=== PATIENT | female | born 1945 | race Caucasian/White ===

== ENCOUNTER → 2017-09-18 | Outpatient (CLI) | payer MEDICARE, OTHER | END | disposition home or self-care (01) | LOC: ECHO 09:44 | DX: I48.91 Unspecified atrial fibrillation (principal); I34.0 Nonrheumatic mitral (valve) insufficiency | CPT/HCPCS: 93306 ==

== ENCOUNTER 2017-12-16 09:37 | Day surgery (SDC) | payer MEDICARE ==
[~2017-12-16 09:37] MED LIST: APIX5TAB PO; CHOL2000 PO; HYDR25TA9 PO; HYDROmorphone 2 MG/ML VIAL IV PRN; IV RINGERS,LACTATED 1000ML 1,000 ML IV SCH; LEVO150T5 PO; LEVO25TA4 PO; LIDOCAINE 1% PF 2 ML VIAL. ID PRN; LOSA1TAB19 PO; LOSA50TA7 PO; LOVA20TA2 PO; LOVA40TA2 PO; MAG-OXIDE PO; MELO7.5T29 PO; METO-239 PO; MORPHINE SULFATE 2 MG/ML VIAL. IV PRN; MULT1TAB52 PO; OMEP20CA9 PO; ONDANSETRON PF 4 MG/2 ML VIAL. IV PRN; PROCHLORPERAZINE 10 MG/2 ML VIAL. IV PRN; UBID100C26 PO; VITA400C36 PO; fentaNYL PF VIAL 100 MCG/2 ML VIAL IV PRN
--- NOTE | 2017-12-16 10:10 | EKG ---
[facility] [address] [place] [address] Test Date: 2017-12-16 Test Time: 09:18:23 Pat Name: ROSA MEYERS Department: Room: Gender: F Civil Engineering Intern: : 1945 Requested By: TOMMY LYON Order Number: [id number] Reading MD: Greg Balbuena Measurements Intervals [place] Rate: 107 P: [place]: QRS: 46 QRSD: 70 T: 13 QT: 352 QTc: 476 Interpretive Statements ATRIAL FIBRILLATION QRS(T) CONTOUR ABNORMALITY CONSISTENT WITH SEPTAL INFARCT AGE UNDETERMINED ABNORMAL ECG RI6.01 No previous ECG available for comparison Electronically Signed On 12-17-2017 11:28:30 CDT by Greg Balbuena
[2017-12-16] MEDS ORDERED: PROPOFOL 20 ML IV ONE (11:00)
[2017-12-16 11:09] LABS: BASO % 1 % (0-3); EOS # 0.3 x10^3/uL (0.0-0.7); EOS % 5 % (0-3); HEMATOCRIT 42.9 % (36.0-47.0); HEMOGLOBIN 14.8 g/dL (12.0-15.5); LYMPH # 0.7 x10^3/uL (1.0-4.8); LYMPH % 14 % (24-48); MEAN CORPUSCULAR HEMOGLOBIN 32 pg (25-35); MEAN CORPUSCULAR HGB CONC 35 g/dL (31-37); MEAN CORPUSCULAR VOLUME 93 fL (79-100); MONO # 0.5 x10^3/uL (0.0-1.1); MONO % 9 % (0-9); NEUT # 3.8 x10^3uL (1.8-7.7); NEUT % 71 % (31-73); PLATELET COUNT 214 x10^3/uL (140-400); RED BLOOD COUNT 4.62 x10^6/uL (3.50-5.40); RED CELL DISTRIBUTION WIDTH 15.4 % (11.5-14.5); WHITE BLOOD COUNT 5.4 x10^3/uL (4.0-11.0)
[2017-12-16 11:19] LABS: CALCIUM 9.4 mg/dL (8.5-10.1); CREATININE 0.9 mg/dL (0.6-1.0); GFR 61.5; MAGNESIUM 1.8 mg/dL (1.8-2.4); POTASSIUM 3.8 mmol/L (3.5-5.1)
--- NOTE | 2017-12-16 12:17 | EKG ---
[facility] [address] [place] [address] Test Date: 2017-12-16 Test Time: 12:11:18 Pat Name: ROSA MEYERS Department: Room: Gender: F Chef'S Assistant: AT : 1945 Requested By: TOMMY LYON Order Number: [id number] Reading MD: Roosevelt Pemberton MD Measurements Intervals [place] Rate: 67 P: 55 PA: 208 QRS: 11 QRSD: 74 T: 26 QT: 434 QTc: 462 Interpretive Statements SINUS RHYTHM Electronically Signed On 12-17-2017 11:27:02 CDT by Rosoevelt Pemberton MD
[2017-12-16 12:40] VITALS: BP 122/82
--- NOTE | 2017-12-16 17:21 | PDOC4 ---
PROCEDURE Procedure Cardioversion. The patient is a 72-year-old female with a history of atrial fibrillation. She has been treated with rate control medications. She has been anticoagulated for greater than 2 months. Echocardiogram shows normal LV systolic function and a moderately enlarged left atrium. Attempted cardioversion for atrial fibrillation was recommended. Risks and benefits were discussed. She agreed to proceed. After informed consent was obtained the patient was reviewed by the anesthesiology service. The patient was sedated as per protocol. Once an acceptable level of sedation was reached the patient was treated with one discharge of 100 J of biphasic energy which converted her atrial fibrillation to sinus rhythm. She awoke normally from her anesthesia. Conclusion. Successful cardioversion of atrial fibrillation to a sinus rhythm. TOMMY LYON MD Dec 16, 2017 17:21
== END 2017-12-16 12:59 | disposition home or self-care (01) ==
LOC: SURG 09:37
PROVIDERS: ATTEND Internal Medicine Cardiovascular Disease
DX: I48.91 Unspecified atrial fibrillation (principal); I10 Essential (primary) hypertension; E03.9 Hypothyroidism, unspecified; K21.9 Gastro-esophageal reflux disease without esophagitis; Z98.41 Cataract extraction status, right eye; Z98.42 Cataract extraction status, left eye; Z96.1 Presence of intraocular lens; Z90.710 Acquired absence of both cervix and uterus; Z98.890 Other specified postprocedural states; Z82.49 Family history of ischemic heart disease and other diseases of the circulatory system; Z88.2 Allergy status to sulfonamides; Z91.048 Other nonmedicinal substance allergy status; Z79.899 Other long term (current) drug therapy
CPT/HCPCS: 36415; 80048; 83735; 85025; 92960; 93005; J2704

== ENCOUNTER → 2020-07-27 | Day surgery (SDC) | payer MEDICARE ==
[~2020-07-27] VITALS: Ht 177.8 cm; Wt 92.0 kg
[~2020-07-27] MED LIST changes: +HYDR-2145 PO; -HYDR25TA9 PO; -HYDROmorphone 2 MG/ML VIAL IV PRN; -LIDOCAINE 1% PF 2 ML VIAL. ID PRN; +LIDOCAINE 2% PF 5 ML VIAL. ONE; +LOSA-73 PO; -LOSA50TA7 PO; -MORPHINE SULFATE 2 MG/ML VIAL. IV PRN; +MULT-445 PO; -MULT1TAB52 PO; +OMEP20CA16 PO; -OMEP20CA9 PO; -ONDANSETRON PF 4 MG/2 ML VIAL. IV PRN; -PROCHLORPERAZINE 10 MG/2 ML VIAL. IV PRN; +PROPOFOL 10 MG/ML (20ML) VIAL. IV ONE; +VITA-8 PO; -VITA400C36 PO; -fentaNYL PF VIAL 100 MCG/2 ML VIAL IV PRN
[2020-07-27 07:03] VITALS: BP 138/89
[2020-07-27 09:15] VITALS: BP 125/58
--- NOTE | 2020-07-30 19:08 | PATHOLOGY ---
[facility] Accession Number: [id number] . 01 Material submitted: . PART A: rectum - RECTAL POLYPS PART B: cecum - CECAL POLYPS . 01 Clinical history: . HX POLYPS COLONOSCOPY . 02 Diagnosis: A. Colorectal biopsies, rectal polyps: - Hyperplastic polyps. . B. Colon biopsy, cecal polyp: - Tubular adenoma. . (PATRICIA:yogesh; 07/30/2020) [facility] 07/30/2020 1614 Local . 02 Comment: There is no high-grade dysplasia or evidence of malignancy. (PATRICIAM:yogesh; 07/30/2020) . 02 Electronically signed: . Reggie Hernandez MD, Pathologist NPI- [id number] . 01 Gross description: . A. Received in formalin labeled "Omega, Alisha, rectal polyp" and labeled on the requisition as "rectal polyps" are multiple fragments of flores-brown soft tissue measuring in aggregate 1.0 x 0.3 x 0.1 cm. The specimen is submitted entirely in A1. . B. Received in formalin labeled "Omega, Alisha, cecal polyp" and labeled on the requisition as "cecal polyps" is a fragment of flores-brown soft tissue measuring 0.3 x 0.2 x 0.1 cm. The specimen is submitted entirely in B1. ([facility]; 07/29/2020) [facility] 07/29/2020 1021 Local . 02 Pathologist provided ICD-10: K62.1, D12.0 . 02 CPT . 559685, 075920 Specimen Comment: A courtesy copy of this report has been sent to [phone], [phone] Specimen Comment: [id number] Specimen Comment: Report sent to / DR CALLAHAN Performed at: 01 [facility] [address], [place], [place] [id number] MD Leo Rod MD Phone: [phone] Performed at: 02 [facility] [address] [place], [place] [id number] MD Reggie Hernandez MD Phone: [phone]
== END | disposition home or self-care (01) ==
LOC: ENDOS 06:33
PROVIDERS: ATTEND Internal Medicine Gastroenterology
DX: Z12.11 Encounter for screening for malignant neoplasm of colon (principal); D12.0 Benign neoplasm of cecum; K64.0 First degree hemorrhoids; K62.1 Rectal polyp; K57.30 Diverticulosis of large intestine without perforation or abscess without bleeding; K63.89 Other specified diseases of intestine; I48.91 Unspecified atrial fibrillation; I10 Essential (primary) hypertension; E78.00 Pure hypercholesterolemia, unspecified; K21.9 Gastro-esophageal reflux disease without esophagitis; M19.90 Unspecified osteoarthritis, unspecified site; E03.9 Hypothyroidism, unspecified; Z86.010 Personal history of colon polyps; Z90.710 Acquired absence of both cervix and uterus; Z98.890 Other specified postprocedural states; Z79.899 Other long term (current) drug therapy; Z72.89 Other problems related to lifestyle; Z88.2 Allergy status to sulfonamides; Z88.8 Allergy status to other drugs, medicaments and biological substances
CPT/HCPCS: 45380; 45385; 88305; J2704

== ENCOUNTER → 2021-03-28 | Outpatient (CLI) | payer MEDICARE ==
[2020-07-27 09:15] VITALS: BP 125/58
[~2021-03-28] MED LIST changes: -IV RINGERS,LACTATED 1000ML 1,000 ML IV SCH; -LIDOCAINE 2% PF 5 ML VIAL. ONE; -PROPOFOL 10 MG/ML (20ML) VIAL. IV ONE
--- NOTE | 2021-03-28 15:38 | KCIC ---
EXAMINATION: CT LEFT KNEE WITHOUT IV CONTRAST CLINICAL HISTORY: Osteoarthritis left knee, preoperative planning. TECHNIQUE: Noncontrast serial axial images obtained through the hip, knee, and ankle with sagittal an d coronal reconstructions through the knee utilizing Conformis protocol for preoperative planning. CT Dose Reduction Employed: One or more of the following individualized dose reduction techniques wer e utilized for this examination: 1. Automated exposure control 2. Adjustment of the mA and/or kV ac cording to patient size 3. Use of iterative reconstruction technique. COMPARISON: Bilateral knee radiographs 07/29/2019 FINDINGS: Slightly angulated remote ununited fracture through the posterior medial tibial plateau. No evidence of acute fracture. Moderate to severe tricompartmental degenerative changes, most pronounced in the m edial compartment with [id number]-[id number] contact. Trace joint effusion. Small Payne's cyst containing 2 ti ny calcified joint bodies. Findings suggestive of a poorly visualized small ganglion emanating from t he posterior proximal tibiofibular joint containing several small calcified joint bodies. Tiny linear calcific density along the posterolateral aspect of the talus, possibly related to remote trauma. Limited evaluation of the left hip and ankle otherwise unremarkable. No evidence of acute fr acture. IMPRESSION: Remote ununited fracture through the posterior medial tibial plateau. No evidence of acute fracture. Moderate to severe tricompartmental degenerative changes in the left knee, advanced in the medial com partment. Small Payne's cyst and suspected poorly visualized small ganglion along the posterior proximal tibiof ibular joint both containing joint bodies. Electronically signed by: Mike Hassan DO (03/28/2021 3:36 PM) LAUREN
== END ==
LOC: KCIC CT 13:41
PROVIDERS: ATTEND Orthopaedic Surgery
DX: S82.142K Displaced bicondylar fracture of left tibia, subsequent encounter for closed fracture with nonunion (principal); M17.12 Unilateral primary osteoarthritis, left knee; M71.22 Synovial cyst of popliteal space [Baker], left knee; X58.XXXD Exposure to other specified factors, subsequent encounter
CPT/HCPCS: 73700

== ENCOUNTER → 2021-05-27 | Outpatient (CLI) | payer MEDICARE ==
[2020-07-27 09:15] VITALS: BP 125/58
[~2021-05-27] MED LIST changes: +ASPI-630 PO; +CHOL500045 PO; +VALS80TA3 PO; +VITA1TAB19 PO; +[UNRECOGNIZED DRUG - CODE] PO; +prevagen PO
[2021-05-27 09:01] LABS: BASO % 1 % (0-3); EOS # 0.2 x10^3/uL (0.0-0.7); EOS % 5 % (0-3); HEMATOCRIT 43.4 % (36.0-47.0); HEMOGLOBIN 14.3 g/dL (12.0-15.5); LYMPH # 0.8 x10^3/uL (1.0-4.8); LYMPH % 17 % (24-48); MEAN CORPUSCULAR HEMOGLOBIN 31 pg (25-35); MEAN CORPUSCULAR HGB CONC 33 g/dL (31-37); MEAN CORPUSCULAR VOLUME 95 fL (79-100); MONO # 0.5 x10^3/uL (0.0-1.1); MONO % 11 % (0-9); NEUT # 3.3 x10^3/uL (1.8-7.7); NEUT % 67 % (31-73); PLATELET COUNT 287 x10^3/uL (140-400); RED BLOOD COUNT 4.58 x10^6/uL (3.50-5.40); RED CELL DISTRIBUTION WIDTH 14.8 % (11.5-14.5); WHITE BLOOD COUNT 4.9 x10^3/uL (4.0-11.0)
[2021-05-27 09:11] LABS: PROTHROMBIN TIME PATIENT 12.1 SEC (11.7-14.0)
[2021-05-27 09:21] LABS: ALBUMIN 3.5 g/dL (3.4-5.0); CALCIUM 9.8 mg/dL (8.5-10.1); CREATININE 0.8 mg/dL (0.6-1.0); GFR 69.9; POTASSIUM 3.5 mmol/L (3.5-5.1)
--- NOTE | 2021-05-27 15:52 | RAD ---
EXAMINATION: XR CHEST 2V CLINICAL HISTORY: Preoperative clearance. EXAM DATE/TIME: 05/27/2021 12:21 PM COMPARISON: None FINDINGS: Lines, Tubes, and Devices: None. Cardiomediastinal Silhouette: Within normal limits. Lungs and Pleura: No evidence of focal airspace consolidation or pleural effusion. Minimal left basil ar subsegmental atelectasis and/or scarring. Pulmonary vasculature unremarkable. Bones and Soft Tissues: Degenerative changes in the thoracic spine. IMPRESSION: No evidence of acute cardiopulmonary abnormality. Electronically signed by: Mike Hassan DO (05/27/2021 3:50 PM) [id number]
[2021-05-28 00:08] LABS: HEMOGLOBIN A1C 5.8 % (4.8-5.6)
== END ==
LOC: SURGPAT 12:00
PROVIDERS: ATTEND Orthopaedic Surgery
DX: Z01.818 Encounter for other preprocedural examination (principal); M17.0 Bilateral primary osteoarthritis of knee; M47.814 Spondylosis without myelopathy or radiculopathy, thoracic region
CPT/HCPCS: 36415; 71046; 80048; 82040; 82306; 83036; 85025; 85610; 85651; 85730; 87641

== ENCOUNTER 2021-06-17 06:00 | Inpatient (IN) | payer MEDICARE ==
[~2021-06-17] VITALS: Ht 177.8 cm; Wt 90.9 kg
[2021-06-17] VITALS (12 sets, daily range): BP systolic 125–147; BP diastolic 61–88
[~2021-06-17 06:00] MED LIST changes: +ACETAMINOPHEN 500 MG TABLET PO PRN; +GABAPENTIN 300 MG CAPSULE. PO PRN; +HYDROmorphone 2 MG/ML INJ. IVP PRN; +IV RINGERS,LACTATED 1000ML 1,000 ML IV SCH; +MELOXICAM 7.5 MG TABLET PO PRN; +MORPHINE SULFATE 2 MG/ML INJ. IVP PRN; +PROCHLORPERAZINE 10 MG/2 ML VIAL. IVP PRN; +TRANEXAMIC ACID 1,000 MG in IV NS 50ML -- 1ST BAG INJ ONE; +TV=62ml MORPHINE 5 MG, KETOROLAC 30 MG, ROPIV, EPI INT ART ONE; +fentaNYL PF VIAL 100 MCG/2 ML VIAL IVP PRN
[2021-06-17] MEDS: LEVOTHYROXINE 150 MCG TABLET PO SCH (06:00)
[2021-06-17] MEDS ORDERED: PROPOFOL 10 MG/ML (20ML) VIAL. IV ONE (06:55)
[2021-06-17] MEDS ORDERED: LIDOCAINE 2% PF 5 ML VIAL. ONE (06:55)
[2021-06-17] MEDS ORDERED: fentaNYL PF VIAL 100 MCG/2 ML VIAL ONE (06:55)
[2021-06-17] MEDS ORDERED: DEXAMETHASONE SOD PHOS 4 MG/ML VIAL ONE (06:56)
[2021-06-17] MEDS ORDERED: SEVOFLURANE 61 TO 120 MINUTES. IH ONE (06:56)
[2021-06-17] MEDS ORDERED: ONDANSETRON PF 4 MG/2 ML VIAL. ONE (06:56)
[2021-06-17] MEDS ORDERED: FAMOTIDINE 20 MG/2 ML VIAL ONE (07:04)
[2021-06-17] MEDS ORDERED: TRANEXAMIC ACID in NS IVPB 100 ML ONE (07:19)
[2021-06-17] MEDS ORDERED: BUPIVACAINE MPF 0.25% 30 ML VIAL. ONE (07:38)
[2021-06-17] MEDS: CLINDAMYCIN 900MG PREMIX 50 ML IV PRN ×2 (07:40→14:12)
[2021-06-17] MEDS ORDERED: TRIAMCINOLONE PRES.FREE 40 MG/ML VIAL. INT ART ONE (07:45)
[2021-06-17] MEDS ORDERED: TRANEXAMIC ACID 1,000 MG in IV NS 50ML -- 2ND BAG INJ ONE (08:00)
[2021-06-17] MEDS ORDERED: HYDROmorphone 2 MG/ML INJ. ONE (08:02)
--- NOTE | 2021-06-17 09:09 | PDOC4 ---
OPERATIVE NOTE Date: Date: Jun 17, 2021 Pre-Op Diagnosis: 1. 75-year-old female primary osteoarthritis left knee Post-Op Diagnosis: 1. 75-year-old female primary osteoarthritis left knee 2. Status post left total knee arthroplasty Procedure Performed: 1. Left primary total knee arthroplasty Surgeon: Jennifer Anesthesia Type: General Blood Loss: 50 cc Specimans Obtained: Products of left total knee arthroplasty Findings: None Complications: Patient tolerated the procedure well without any apparent complications. Operative Note: See dictation BRADEN MONAHAN Jun 17, 2021 09:09
[2021-06-17] MEDS ORDERED: diphenhydrAMINE 50 MG/ML VIAL IVP PRN (09:15)
[2021-06-17] MEDS ORDERED: CALCIUM CARBONATE 500 MG TAB.CHEW PO PRN (09:15)
[2021-06-17] MEDS ORDERED: DEXTROSE 50% 25 GM / 50ML DISP.SYRIN. IV PRN (09:15)
[2021-06-17] MEDS ORDERED: 0.9 % SODIUM CHLORIDE 10 ML DISP.SYRIN. IV PRN (09:15)
[2021-06-17] MEDS ORDERED: IV DEXTROSE 5% 250 ML BAG. IV PRN (09:15)
[2021-06-17] MEDS ORDERED: MORPHINE SULFATE 2 MG/ML INJ. IVP PRN (09:15)
--- NOTE | 2021-06-17 09:20 | DISCH ---
DISCHARGE INSTRUCTIONS Condition on Discharge Condition on Discharge: Stable Activity After Discharge Activity Instructions for Disc: No restrictions, Activity as tolerated Bathing Instructions: Shower-keep dressing dry Exercise Instruction after Dis: Walk 10 min, 3 x per day Driving Instructions after Dis: Do not drive Weight Bearing Status after Di: Full weight bearing Diet after Discharge Diet after Discharge: Regular Wound Incision Care Wound/Incision Care: Ice to area for comfort, Keep wound/cast CDI, Change dressing (On postoperative day #7; on or after 06/24/21) Contacting the DRJanet after DC Call your doctor for: Fever greater than 100 Follow-Up Follow up with: Orthopedic clinic [phone] Treatment/Equipment after DC Adaptive Equipment Issued: Front wheeled walker BRADEN MONAHAN Jun 17, 2021 09:20
--- NOTE | 2021-06-17 09:31 | HP ---
DATE OF SERVICE: 06/17/2021 ADMIT DATE: 06/17/2021 PREOP HISTORY AND PHYSICAL HISTORY OF PRESENT ILLNESS: She is here today with complaints of significant bilateral knee pain, left greater than right. She is presently failed conservative therapies with multiple injections, anti-inflammatories, modification of activities, etc., but she continues with severe and unremitting pain causing her difficulties with activities of daily living. Her recent viscosupplementation injections into the left knee also did very little. Therefore, in the office after evaluation, she did not have any significant relief. Therefore, we talked about knee replacement. REVIEW OF SYSTEMS: Unremarkable currently other than the patient's current musculoskeletal symptoms. PAST MEDICAL HISTORY: Hypertension, hypothyroidism, gastroesophageal reflux, atrial fibrillation. PAST SURGICAL HISTORY: Hysterectomy, bladder surgery, bilateral cataract implants. FAMILY HISTORY: Atrial fibrillation. SOCIAL HISTORY: Never a tobacco use, minimal alcohol use. MEDICATIONS: Aspirin, vitamin D3, levothyroxine, meloxicam, metoprolol succinate, lovastatin, valsartan, omeprazole, HCTZ. MEDICATION ALLERGIES: SULFA. PHYSICAL EXAMINATION: VITAL SIGNS: She is 70 inches tall. She is 198 pounds. Vital signs are stable today. GENERAL: She is alert and oriented x 3. HEART: Regular rate and rhythm. ABDOMEN: Soft and nontender. LUNGS: Clear in all kwan to auscultation. EXTREMITIES: Her left knee shows valgus deformity as well as the right knee. There is a lot of apprehension of the patellofemoral joint bilaterally, left greater than right, medial and lateral joint line tenderness again bilaterally and is worse on the left than on the right with a positive Apley's test in the medial and lateral compartments. There is no instability in the varus, valgus or AP plane, but she lacks full extension by 8 degrees. Flexion is only to 95, almost to 100 degrees today. Pain throughout the arc of motion. No atrophy of musculature. There is some bilateral lower extremity swelling from the junction of the middle and distal third on both lower extremities at this point. Vascular status; however, fully intact. NEUROLOGIC: Intact. IMPRESSION: Severe degenerative joint disease, bilateral knees. PLAN: At this time, after a long discussion with her today again about the risks and benefits of the surgery, postoperative protocol and followup, she wishes to go ahead and proceed with a left total knee replacement. While she was under anesthetic, we also talked with her about injecting the right knee with dilute steroid with 40 mg Kenalog, 2 mL 0.25% Marcaine. She wishes to proceed after seeing anesthesia. ANTONINA/PRAVIN DR: ANTONINA/aidan TID: [id number]
--- NOTE | 2021-06-17 09:40 | OP ---
DATE OF SURGERY: 06/17/2021 PREOPERATIVE DIAGNOSIS: Severe degenerative joint disease, left knee. POSTOPERATIVE DIAGNOSIS: Severe degenerative joint disease, left knee. PROCEDURE: Left total knee arthroplasty. SURGEON: Martin Rodriguez Jr, DO STICKER OPERATOR: ISAMAR Mccray. ANESTHESIA: General. COMPLICATIONS: None. ESTIMATED BLOOD LOSS: 50 mL COMPONENTS: ConforMIS left total knee arthroplasty with a medial 6 tibial insert, lateral A tibial insert and a 35 patella. DESCRIPTION OF PROCEDURE: The patient was taken to the operative suite, given a spinal anesthetic. Left lower extremity was then prepped and draped in a sterile fashion. Incision was made through skin and subcutaneous tissues down to the extensor mechanism. Superficial bleeding was coagulated using a Bovie knife. After that, the medial parapatellar incision was made. Patella was everted. There were severe changes noted in the patellofemoral compartment. Therefore, the size of this patella was measured. This was cut in the appropriate fashion and then a 35 was noted to be the most appropriate size for the patella; therefore, the guide was placed and the drill holes were made through the guide. This was protected as the knee was taken into a flexed position. There were noted to be severe changes to the medial compartment, moderate changes to the lateral compartment. In any manner, the medial and lateral meniscal remnants were removed as well as the ACL, PCL remained intact and the F1 guide was then placed on the femur and drilled. Chondral surface was removed. The appropriate sites and then the F2 guide was placed, held in appropriate position. The drill pins were placed on the distal femur and then they were also on the anterior femur to hold this into position. The distal pins were then removed. The remainder of the guide was noted to be intact and in good position. Following this, the distal cut was made. This was noted to be a good flush cut. This was all removed and the next guide was then placed through using the pin holes distally. This was flushed on the femur with proper rotation and orientation noted. Therefore, this was pinned in appropriate position. The anterior, posterior and one of the chamfer cuts were made as well as the plugs, those were drilled. This guide was then removed and the final guide was placed on the femur. The final chamfer cuts were then made. These were noted to be a good flush cuts. The trial fit perfectly. This was then removed and following this, the external tibial guide was placed on the tibia with medial, lateral and posterior retractors placed. Proximal tibia was then cut to the appropriate position and an extra 2 mm was taken due to the fact this was a minimal resection at this point. The trials were then placed, taken through range of motion. There was excellent tracking of the patellofemoral joint and excellent stability throughout the arc of motion. These trials were then marked on the tibial side. This was held with pins and the drill and the keel were placed at the appropriate depth for rotation. All trial components were then removed. The Werewolf was then used to coagulate posterior capsular structures as well as medial and lateral capsular structures. Cement was mixed on the back table. Cement was then placed on cut surfaces. The tibia was impacted first, followed by the femur and this was held in extension until hardening of cement. Same was done on the patella, which was held with a patellar clamp. Excess cement was removed and then after hardening of cement, excess cement was again removed and then taken through range of motion. There was excellent stability, equal flexion and extension gaps were noted at this point. Then, the trials were removed and the actual polyethylene inserts were placed and held in the tray and noted to be stable. This was taken through range of motion. Tranexamic acid was then placed within the knee itself. While the tourniquet was deflated, no excessive bleeding was noted. Superficial bleeding was coagulated with the Bovie knife as well as with the Werewolf. The medial parapatellar incision was then closed in a running fashion using the Stratafix, then taken through multiple ranges of motion, noted to be stable and secure. This was reinforced with 2 or 3 separate areas of Vicryl and then the superficial tissue and skin was reapproximated. Sterile dressing was applied. The patient was then taken from the operative bed to the postoperative bed, taken to the PACU in stable condition. MARTIN BOYD: Wolfgang TID: [id number]
[2021-06-17] MEDS ORDERED: IV NORMAL SALINE 1000ML BAG 1,000 ML IV SCH (10:00)
--- NOTE | 2021-06-17 10:11 | RAD ---
XR KNEE_LT 1-2 VIEWS History: Reason: POST OP / Spl. Instructions: / History: Technique: 2 views left knee Comparison: July 29, 2019 Findings: Interval left total knee arthroplasty. Expected postoperative findings with subcutaneous and intra-ar ticular gas. No dislocation. No acute fracture. Impression: 1. Interval left total knee arthroplasty. No immediate hardware complications. Electronically signed by: Clint Gray DO (06/17/2021 10:08 AM) [id number]
--- NOTE | 2021-06-17 10:40 | NUR ---
Arrived to unit by bed from PACU. Awakens but falls back to sleep. O2 at 2l per n/c/ IVF's intact and infusing. Left leg elevated on 2 pillows and ice pack. Dressing d/i with Jazmin box flashing green. Toes are warm and good capillary refill. CONY's on both feet and DINORAH on right leg. Side rails up x's 2 with call light in reach. Sister at bedside.
[2021-06-17] MEDS: ONDANSETRON ODT 4 MG TAB.RAPDIS. PO SCH ×3 (12:00→19:41)
[2021-06-17] MEDS: ONDANSETRON PF 4 MG/2 ML VIAL. IVP SCH ×2 (12:00→17:35)
--- NOTE | 2021-06-17 13:30 | PDOC2 ---
CONSULT Date of Consult Date of Consult DATE: 06/17/21 TIME: 13:25 Reason for Consult Reason for Consult: Medical management Referring Physician Referring Physician: Dr. Martin Rodriguez Identification/Chief Complaint Chief Complaint Left knee pain Source Source: Patient History of Present Illness Reason for Visit: Ms Duff is a 75yo female with PMHx HTN, afib, hypothyroidism, GERD who presents to [place] for left total knee arthroplasty for definitive treatment for osteoarthritis. Preoperative labs reviewed, A1c is 5.8, 25 hydroxy vitamin D 75.9, Hb 14.3, INR 0.9. Atrial fibrillation she status post successful cardioversion is maintained on Toprol-XL. She notes her levothyroxine dosing has been stable. Notes no urinary problems no shortness of breath or chest pain. She currently lives alone but her sister is coming in town on 06/20/2019 to take care of her postoperatively. She currently has left knee pain and stiffness no numbness or tingling in her foot. Past Medical History Cardiovascular: AFIB, HTN GI: GERD Endocrine: Hypothyroidism Past Surgical History Past Surgical History: Cataract Removal, Hysterectomy, Other (bladder surgery) Family History Family History: High Cholestrol, Hypertension Social History No ALCOHOL: rare Drugs: None Lives: with Family Domestic Violence: Neg Current Medications Current Medications Current Medications Fentanyl Citrate (Fentanyl 2ml Vial) 25 mcg PRN Q5MIN PRN IVP MILD PAIN 1-3; Start 06/17/21 at 06:00; Stop 06/18/21 at 05:59 Fentanyl Citrate (Fentanyl 2ml Vial) 50 mcg PRN Q5MIN PRN IVP MODERATE PAIN 4- 6; Start 06/17/21 at 06:00; Stop 06/18/21 at 05:59 Morphine Sulfate (Morphine Sulfate) 1 mg PRN Q10MIN PRN IVP SEVERE PAIN 7-10; Start 06/17/21 at 06:00; Stop 06/18/21 at 05:59 Ringer's Solution 1,000 ml @ 30 mls/hr Q24H IV Last administered on 06/17/21at 06:31; Start 06/17/21 at 06:00; Stop 06/17/21 at 17:59 Hydromorphone HCl (Dilaudid) 0.5 mg PRN Q10MIN PRN IVP SEVERE PAIN 7-10, 2nd CHOICE; Start 06/17/21 at 06:00; Stop 06/18/21 at 05:59 Prochlorperazine Edisylate (Compazine) 5 mg PACU PRN PRN IVP NAUSEA, MRX1; Start 06/17/21 at 06:00; Stop 06/18/21 at 05:59 Morphine Sulfate 5 mg/Ketorolac Tromethamine 30 mg/Ropivacaine 60 ml/Epinephrine HCl 0.5 mg/ Miscellaneous 63 ml @ 63 mls/hr 1X PERIOP ONCE INT ART Last administered on 06/17/21at 08:20; Start 06/17/21 at 06:00; Stop 06/17/21 at 07:00; Status DC Meloxicam (Mobic) 15 mg 1X PREOP PRN PO PRIOR TO PROCEDURE Last administered on 06/17/21at 06:31; Start 06/17/21 at 06:00; Stop 06/17/21 at 18:00 Gabapentin (Neurontin) 300 mg 1X PREOP PRN PO PRIOR TO PROCEDURE Last administered on 06/17/21at 06:32; Start 06/17/21 at 06:00; Stop 06/17/21 at 18:00 Acetaminophen (Tylenol) 1,000 mg 1X PREOP PRN PO PRIOR TO PROCEDURE Last administered on 06/17/21at 06:32; Start 06/17/21 at 06:00; Stop 06/17/21 at 18:00 Clindamycin Phosphate 50 ml @ 100 mls/hr 1X PREOP PRN IV PRIOR TO PROCEDURE Last administered on 06/17/21at 07:40; Start 06/17/21 at 06:00; Stop 06/17/21 at 18:00 Tranexamic Acid 50 ml @ 50 mls/hr 1X PERIOP ONCE INJ Last administered on 06/17/21at 08:19; Start 06/17/21 at 06:00; Stop 06/17/21 at 07:00; Status DC Tranexamic Acid 50 ml @ 50 mls/hr 1X PERIOP ONCE INJ ; Start 06/17/21 at 08:00; Stop 06/17/21 at 08:59; Status DC Propofol (Diprivan) 200 mg STK-MED ONCE IV ; Start 06/17/21 at 06:55; Stop 06/17/21 at 06:55; Status DC Lidocaine HCl (Lidocaine Pf 2% Vial) 5 ml STK-MED ONCE .ROUTE ; Start 06/17/21 at 06:55; Stop 06/17/21 at 06:56; Status DC Fentanyl Citrate (Fentanyl 2ml Vial) 100 mcg STK-MED ONCE .ROUTE ; Start 06/17/21 at 06:55; Stop 06/17/21 at 06:56; Status DC Dexamethasone Sodium Phosphate (Decadron) 4 mg STK-MED ONCE .ROUTE ; Start 06/17/21 at 06:56; Stop 06/17/21 at 06:56; Status DC Ondansetron HCl (Zofran) 4 mg STK-MED ONCE .ROUTE ; Start 06/17/21 at 06:56; Stop 06/17/21 at 06:56; Status DC Sevoflurane (Ultane) 60 ml STK-MED ONCE IH ; Start 06/17/21 at 06:56; Stop 06/17/21 at 06:56; Status DC Famotidine (Pepcid Vial) 20 mg STK-MED ONCE .ROUTE ; Start 06/17/21 at 07:04; Stop 06/17/21 at 07:04; Status DC Tranexamic Acid 100 ml @ As Directed STK-MED ONCE .ROUTE ; Start 06/17/21 at 07:19; Stop 06/17/21 at 07:20; Status DC Bupivacaine HCl (Sensorcaine Mpf 0.25%) 30 ml STK-MED ONCE .ROUTE Last administered on 06/17/21at 08:18; Start 06/17/21 at 07:38; Stop 06/17/21 at 07:38; Status DC Triamcinolone Acetonide (Kenalog-40) 40 mg 1X ONCE INT ART Last administered on 06/17/21at 08:18; Start 06/17/21 at 07:45; Stop 06/17/21 at 07:46; Status DC Hydromorphone HCl (Dilaudid) 2 mg STK-MED ONCE .ROUTE ; Start 06/17/21 at 08:02; Stop 06/17/21 at 08:02; Status DC Morphine Sulfate (Morphine Sulfate) 2 mg PRN Q1HR PRN IVP PAIN; Start 06/17/21 at 09:15 Diphenhydramine HCl (Benadryl) 25 mg PRN Q6HRS PRN IVP ITCHING; Start 06/17/21 at 09:15 Senna/Docusate Sodium (Senna Plus) 1 tab DAILY PO ; Start 06/18/21 at 09:00 Sodium Chloride 1,000 ml @ 40 mls/hr Q24H IV ; Start 06/17/21 at 10:00 Clindamycin Phosphate 50 ml @ 100 mls/hr Q6H IV ; Start 06/17/21 at 13:30; Stop 06/18/21 at 01:59 Magnesium Hydroxide (Milk Of Magnesia) 2,400 mg 1X PRN PRN PO CONSTIPATION; Start 06/18/21 at 06:00; Stop 06/19/21 at 05:59 Bisacodyl (Dulcolax Supp) 10 mg 1X PRN PRN DE CONSTIPATION; Start 06/18/21 at 16:00; Stop 06/19/21 at 15:59 Calcium Carbonate/ Glycine (Tums) 500 mg PRN QID PRN PO INDIGESTION; Start 06/17/21 at 09:15 Sodium Chloride (Normal Saline Flush) 10 ml QSHIFT PRN IV AFTER MEDS AND BLOOD DRAWS; Start 06/17/21 at 09:15 Acetaminophen (Tylenol) 1,000 mg Q6H PO ; Start 06/18/21 at 12:00 Ondansetron HCl (Zofran) 4 mg Q6HRS IVP ; Start 06/17/21 at 12:00; Stop 06/18/21 at 06:01 Ondansetron HCl (Zofran Odt) 4 mg Q6HRS PO ; Start 06/17/21 at 12:00; Stop at 06:01 Oxycodone HCl (Roxicodone) 5 mg PRN Q4HRS PRN PO Pain score 4-6; Start 06/17/21 at 09:15 Dextrose (Dextrose 50%-Water Syringe) 12.5 gm PRN Q15MIN PRN IV SEE COMMENTS; Start 06/17/21 at 09:15 Dextrose (Iv Dextrose 5%) 250 ml PRN Q15MIN PRN IV SEE COMMENTS; Start 06/17/21 at 09:15 Enoxaparin Sodium (Lovenox 40mg Syringe) 40 mg Q24H SQ ; Start 06/18/21 at 06:00 Active Scripts Active Reported Qhwickb-Gnlgmybdz-Uloh Tab (Calcium/Magnesium/Zinc) 1 Each Tablet 1 Each PO DAILY [prevagen] 1 Tab PO DAILY Diovan (Valsartan) 80 Mg Tablet 80 Mg PO DAILY Vitamin D3 (Cholecalciferol (Vitamin D3)) 125 Mcg Tablet 125 Mcg PO DAILY Aspirin 81 Mg Tab.chew 81 Mg PO DAILY B Complex (Vitamin B Complex) 1 Each Tablet 1 Each PO DAILY [Mag-Oxide] 250 Mg PO DAILY Coq-10 (Ubidecarenone) 100 Mg Capsule 100 Mg PO DAILY Vitamin E (Vitamin E Mixed) 400 Unit Capsule 400 Unit PO DAILY Lovastatin 40 Mg Tablet 1 Tab PO QHS Multivitamins (Multivitamin) 1 Each Tablet 1 Tab PO DAILY Hydrochlorothiazide Tablet (Hydrochlorothiazide) 25 Mg Tablet 1 Tab PO DAILY Levothyroxine Sodium 150 Mcg Tablet 1 Tab PO DAILY Metoprolol Succinate ( Xl ) (Metoprolol Succinate) 25 Mg Tab.er.24h 1 Tab PO DAILY Omeprazole 20 Mg Capsule.dr 20 Mg PO DAILY Allergies Allergies: Coded Allergies: Sulfa (Sulfonamide Antibiotics) (Verified Allergy, Intermediate, Hives.Itching (Dime size red spots from waist down), 06/17/21) adhesive tape (Verified Allergy, Mild, bandaid (red around the taped skin), 06/17/21) ROS General: No: Chills, Night Sweats, Fatigue, Malaise, Appetite, Other PSYCHOLOGICAL ROS: No: Anxiety, Behavioral Disorder, Concentration difficultie, Decreased libido, Depression, Disorientation, Hallucinations, Hostility, Irritablity, Memory difficulties, Mood Swings, Obsessive thoughts, Physical abuse, Sexual abuse, Sleep disturbances, Suicidal ideation, Other Eyes: No Blurry vision, No Decreased vision, No Double vision, No Dry eyes, No Excessive tearing, No Eye Pain, No Itchy Eyes, No Loss of vision, No Photophob ia, No Scotomata, No Uses contacts, No Uses glasses, No Other HEENT: No: Heacaches, Visual Changes, Hearing change, Nasal congestion, Nasal discharge, Oral lesions, Sinus pain, Sore Throat, Epistaxis, Sneezing, Snoring, Tinnitus, Vertigo, Vocal changes, Other ALLERGY AND IMMUNOLOGY: No: Hives, Insect Bite Sensitivity, Itchy/Watery Eyes, Nasal Congestion, Post Nasal Drip, Seasonal Allergies, Other Hematological and Lymphatic: No: Bleeding Problems, Blood Clots, Blood Transfusions, Brusing, Night Sweats, Pallor, Swollen Lymph Nodes, Other ENDOCRINE: No: Breast Changes, Galactorrhea, Hair Pattern Changes, Hot Flashes, Malaise/lethargy, Mood Swings, Palpitations, Polydipsia/polyuria, Skin Changes, Temperature Intolerance, Unexpected Weight Changes, Other Breast: No New/Changing Breast Lumps, No Nipple changes, No Nipple discharge, No Other Respiratory: No: Cough, Hemoptysis, Orthopnea, Pleuritic Pain, Shortness of breath, SOB with excertion, Sputum Changes, Stridor, Tachypnea, Wheezing, Other Cardiovascular: No Chest Pain, No Palpitations, No Orthopnea, No Paroxysmal Noc. Dyspnea, No Edema, No Lt Headedness, No Other Gastrointestinal: Yes Nausea; No Vomiting, No Abdominal Pain, No Diarrhea, No Constipation, No Melena, No Hematochezia, No Other Genitourinary: No Dysuria, No Frequency, No Incontinence, No Hematuria, No Retention, No Discharge, No Urgency, No Pain, No Flank Pain, No Other, No , No , No , No , No , No , No Musculoskeletal: Yes Joint Pain, Yes Joint Stiffness; No Gait Disturbance, No Joint Swelling, No Muscle Pain, No Muscular Weakness, No Pain In:, No Swelling In:, No Other Neurological: No Behavorial Changes, No Bowel/Bladder ControlChng, No Confusion, No Dizziness, No Gait Disturbance, No Headaches, No Impaired Coord/balance, No Memory Loss, No Numbness/Tingling, No Seizures, No Speech Problems, No Tremors, No Visual Changes, No Weakness, No Other Skin: No Dry Skin, No Eczema, No Hair Changes, No Lumps, No Mole Changes, No Mottling, No Nail Changes, No Pruritus, No Rash, No Skin Lesion Changes, No Other, No Acne Physical Exam General: Alert, Oriented X3, Cooperative, mild distress HEENT: Atraumatic, PERRLA, EOMI, Mucous membr. moist/pink Lungs: Clear to auscultation, Normal air movement Heart: Regular rate, Normal S1, Normal S2, No murmurs Abdomen: Normal bowel sounds, Soft, No tenderness, No hepatosplenomegaly, No masses Extremities: No clubbing, No cyanosis, No edema, Normal pulses, No tenderness/swelling Skin: No rashes, No breakdown, Other (Left knee dressing in place) Neuro: Normal gait, Normal speech, Strength at 5/5 X4 ext, Normal tone, Sensation intact, Cranial nerves 3-12 NL, Reflexes 2+ Psych/Mental Status: Mental status NL, Mood NL MUSCULOSKELETAL: Other (Left knee compressive immobilizer) Vitals VITALS Vital Signs Date Time Temp Pulse Resp B/P (MAP) Pulse Ox O2 Delivery O2 Flow Rate FiO2 06/17/21 10:55 Nasal Cannula 2.0 06/17/21 10:29 97.2 68 12 136/65 94 97.2 Labs Labs Laboratory Tests Test 06/17/21 06:10 POC SARS CoV-2 Antigen Negative (NEGATIVE) Laboratory Tests Test 06/17/21 06:10 POC SARS CoV-2 Antigen Negative (NEGATIVE) Assessment/Plan Assessment/Plan Left knee severe osteoarthritis- s/p left total knee arthroplasty 06/17/2021. Rehab modalities. ASA thromboprophylaxis per ortho HTN - losartan and toprol Afib - s/p cardioversion. sinus currently. on metoprolol xl Hypothyroidism - on 150mcg levothyroxine GERD - on PPI Prediabetes - A1c 5.8 outpatient, should consider metformin therapy 500mg with meals FEN - regular diet PPX - ASA, scds FULL CODE Dispo - inpatient post-op care ANNIE DURAN MD Jun 17, 2021 13:30
[2021-06-17] MEDS: CLINDAMYCIN 900MG PREMIX 50 ML IV SCH ×2 (14:44→21:20)
--- NOTE | 2021-06-17 17:36 | NUR ---
No Zofran given. Tolerating po intake.
[2021-06-17] MEDS: oxyCODONE IR 5 MG TABLET PO PRN (21:19)
[2021-06-17] MEDS: ATORVASTATIN CALCIUM 10 MG TABLET. PO SCH (21:26)
[2021-06-18] MEDS: CLINDAMYCIN 900MG PREMIX 50 ML IV SCH (01:28)
[2021-06-18 03:16] VITALS: BP 124/62
[2021-06-18] MEDS: oxyCODONE IR 5 MG TABLET PO PRN ×4 (04:16→21:00)
[2021-06-18] MEDS: ONDANSETRON ODT 4 MG TAB.RAPDIS. PO SCH (06:00)
[2021-06-18] MEDS ORDERED: MAGNESIUM HYDROXIDE 2,400 MG/30 ML ORAL.SUSP. PO PRN (06:00)
[2021-06-18] MEDS: ONDANSETRON PF 4 MG/2 ML VIAL. IVP SCH ×2 (06:00)
[2021-06-18] MEDS: PANTOPRAZOLE 40 MG TABLET.DR. PO SCH (06:16)
[2021-06-18] MEDS: LEVOTHYROXINE 150 MCG TABLET PO SCH (06:16)
[2021-06-18] MEDS: ENOXAPARIN 40 MG/0.4 ML SYRINGE. SQ SCH (06:16)
[2021-06-18 07:00] VITALS: BP 127/55
--- NOTE | 2021-06-18 08:05 | PDOC ---
PROGRESS NOTES Date of Service DATE: 06/18/21 TIME: 07:55 Subjective Subjective POD #1 s/p L TKA Pt was seen and examined this AM. Awake and alert sitting upright in bed reading news paper. Reports "achiness" to L knee d/t swelling. Tolerating po intake post-op; able to eat all of breakfast. Denies CP, SOB, Abd pain, N/V. Has not yet been ambulatory with therapy services post-op. Able to void post-op w/o difficulty. No IS at bedside. No acute concerns. Objective Vital Signs Vital Signs Date Time Temp Pulse Resp B/P (MAP) Pulse Ox O2 Delivery O2 Flow Rate FiO2 06/18/21 07:00 98.4 65 18 127/55 (79) 95 Room Air 98.4 06/17/21 10:55 2.0 Physical Exam Focused orthopedic examination LLE: Compression stockings in place. Dressings clean, dry and intact. Compartments soft and compressible. Calf non-tender. Cap refill brisk. LLE warm and well perfused. EHL/FHL intact. Plantarflexion/dorsiflexion intact. Wiggles all toes on command. Sensation to light touch throughout the superficial peroneal, deep peroneal, sural, tibial and saphenous nerve distributions intact. No evidence of thrombus. BLE edema to ankles. Labs Laboratory Tests Test 06/17/21 06:10 POC SARS CoV-2 Antigen Negative (NEGATIVE) Imaging Post operative x-rays of the left knee reviewed this AM. Orthopedic hardware well aligned. No acute post-op abnormalities noted. Assessment Assessment 75 y/o F primary osteoarthritis L knee s/p L TKA 06/17 - Jennifer * WBAT LLE * PT/OT for mobilization, gait training and fall prevention. AROM/PROM L knee. * Maintain surgical dressings. Re-enforce as needed. * DVT ppx (Lovenox); ASA 325mg BID on discharge * Post-op abx (Clindamycin) * ICE operative extremity prn * Compressive dressing/DINORAH hose for edema/post-op swelling * AM labs pending; VSS * Encourage use of IS while awake * CM for discharge planning; awaiting therapy recs post-op; discharge arrangements pending * Follow up with ortho clinic in 2 weeks following discharge from the hospital. Call to schedule appointment prior to discharge if not already scheduled prior to surgery. [phone]. Justicifation of Admission Dx: Justifications for Admission: Justification of Admission Dx: N/A BRADEN MNOAHAN Jun 18, 2021 08:05
[2021-06-18 08:20] LABS: ALBUMIN 2.6 g/dL (3.4-5.0); ALBUMIN/GLOBULIN RATIO 0.8 (1.0-1.7); CALCIUM 9.2 mg/dL (8.5-10.1); CREATININE 0.6 mg/dL (0.6-1.0); GFR 97.5; TOTAL BILIRUBIN 0.4 mg/dL (0.2-1.0); TOTAL PROTEIN 5.7 g/dL (6.4-8.2)
[2021-06-18] MEDS: VITAMIN E 200 UNIT CAPSULE. PO SCH (08:21)
[2021-06-18] MEDS: MULTIVITAMIN with MINERAL TABLET. PO SCH (08:22)
[2021-06-18] MEDS: LOSARTAN POTASSIUM 50 MG TABLET. PO SCH (08:22)
[2021-06-18] MEDS: MAGNESIUM OXIDE 400 MG TABLET PO SCH (08:22)
[2021-06-18] MEDS: VITAMIN B COMPLEX TABLET. PO SCH (08:23)
[2021-06-18] MEDS: SENNOSIDES/DOCUSATE 8.6/50MG TABLET. PO SCH (08:23)
[2021-06-18] MEDS: METOPROLOL SUCC 24HR ER 25 MG TAB.ER.24H. PO SCH (08:23)
[2021-06-18] MEDS: CALCIUM CARBONATE 500 MG TABLET PO SCH (08:23)
[2021-06-18] MEDS: CHOLECALCIFEROL (VITAMIN D3) 5,000 UNIT CAPSULE PO SCH (08:24)
[2021-06-18] MEDS ORDERED: NON FORMULARY ITEM (Ubidecarenone (Coq-10) 100 MG) PO SCH (09:00)
--- NOTE | 2021-06-18 09:50 | PDOC ---
[employer] PROGRESS NOTE Date of Service DOS: DATE: 06/18/21 TIME: 09:37 Chief Complaint Chief Complaint Left knee severe osteoarthritis- s/p left total knee arthroplasty 06/17/2021. Rehab modalities. ASA thromboprophylaxis per ortho HTN - losartan and toprol Afib - s/p cardioversion. sinus currently. on metoprolol xl Hypothyroidism - on 150mcg levothyroxine GERD - on PPI Prediabetes - A1c 5.8 outpatient, should consider metformin therapy 500mg with meals FEN - regular diet PPX - ASA, scds FULL CODE Dispo - inpatient post-op care History of Present Illness History of Present Illness Ms Duff is a 75yo female with PMHx HTN, afib, hypothyroidism, GERD who presents to [place] for left total knee arthroplasty for definitive treatment for osteoarthritis. Preoperative labs reviewed, A1c is 5.8, 25 hydroxy vitamin D 75.9, Hb 14.3, INR 0.9. Atrial fibrillation she status post successful cardioversion is maintained on Toprol-XL. She notes her levothyroxine dosing has been stable. Notes no urinary problems no shortness of breath or chest pain. She currently lives alone but her sister is coming in town on 06/20/2019 to take care of her postoperatively. She currently has left knee pain and stiffness no numbness or tingling in her foot. 06/18: Labs glucose 133, albumin 2.6. Hemogram pending. Sitting up in chair. Worked with occupational therapy. Has some pain and stiffness in her left knee no shortness of breath no chest pain Vitals/I&O Vitals/I&O: Vital Signs Date Time Temp Pulse Resp B/P (MAP) Pulse Ox O2 Delivery O2 Flow Rate FiO2 06/18/21 08:23 65 127/55 06/18/21 08:00 Room Air 06/18/21 07:00 98.4 18 95 98.4 06/17/21 10:55 2.0 I & O 06/17/21 06/17/21 06/18/21 15:00 23:00 07:00 Intake Total 1120 ml 200 ml 100 ml Output Total 100 ml 1 ml 401 ml Balance 1020 ml 199 ml -301 ml Physical Exam General: Alert, Oriented X3, Cooperative, mild distress Heart: Regular rate, Normal S1, Normal S2, No murmurs Abdomen: Normal bowel sounds, Soft, No tenderness, No hepatosplenomegaly, No masses Extremities: No clubbing, No cyanosis, No edema, Normal pulses, No tenderness/swelling Skin: No rashes, No breakdown, Other (Left knee dressing in place) Labs Labs: Laboratory Tests Test 06/18/21 07:20 Sodium Level 139 mmol/L (136-145) Potassium Level 4.0 mmol/L (3.5-5.1) Chloride Level 103 mmol/L (98-107) Carbon Dioxide Level 29 mmol/L (21-32) Anion Gap 7 (6-14) Blood Urea Nitrogen 11 mg/dL (7-20) Creatinine 0.6 mg/dL (0.6-1.0) Estimated GFR (Cockcroft-Gault) 97.5 BUN/Creatinine Ratio 18 (6-20) Glucose Level 133 mg/dL (70-99) Calcium Level 9.2 mg/dL (8.5-10.1) Total Bilirubin 0.4 mg/dL (0.2-1.0) Aspartate Amino Transf (AST/SGOT) 11 U/L (15-37) Alanine Aminotransferase (ALT/SGPT) 21 U/L (14-59) Alkaline Phosphatase 52 U/L (46-116) Total Protein 5.7 g/dL (6.4-8.2) Albumin 2.6 g/dL (3.4-5.0) Albumin/Globulin Ratio 0.8 (1.0-1.7) Comment Review of Relevant I have reviewed the following items teresa (where applicable) has been applied. Medications: Current Medications Medications (Trade) Dose Ordered Sig/Xochitl Route PRN Reason Start Time Stop Time Status Last Admin Dose Admin Senna/Docusate Sodium (Senna Plus) 1 tab DAILY PO 06/18/21 09:00 06/18/21 08:23 Sodium Chloride 1,000 ml @ 40 mls/hr Q24H IV 06/17/21 10:00 06/18/21 00:20 DC 06/17/21 19:41 Clindamycin Phosphate 50 ml @ 100 mls/hr Q6H IV 06/17/21 13:30 06/18/21 01:59 DC 06/18/21 01:28 Ondansetron HCl (Zofran Odt) 4 mg Q6HRS PO 06/17/21 12:00 06/18/21 06:01 DC 06/17/21 19:41 Enoxaparin Sodium (Lovenox 40mg Syringe) 40 mg Q24H SQ 06/18/21 06:00 06/18/21 06:16 Metoprolol Succinate (Toprol Xl) 25 mg DAILY PO 06/18/21 09:00 06/18/21 08:23 Vitamin B Complex (Lg B) 1 tab DAILY PO 06/18/21 09:00 06/18/21 08:23 Calcium Carbonate/ Glycine (Oscal) 500 mg DAILY PO 06/18/21 09:00 06/18/21 08:23 Vitamin D (Vitamin D3) 5,000 unit DAILY PO 06/18/21 09:00 06/18/21 08:24 Atorvastatin Calcium (Lipitor) 10 mg QHS PO 06/17/21 21:00 06/17/21 21:26 Multivitamins (Thera M Plus) 1 tab DAILY PO 06/18/21 09:00 06/18/21 08:22 Pantoprazole Sodium (Protonix) 40 mg DAILYAC PO 06/18/21 07:30 06/18/21 06:16 Losartan Potassium (Cozaar) 50 mg DAILY PO 06/18/21 09:00 06/18/21 08:22 Vitamin E (Vitamin E) 400 unit DAILY PO 06/18/21 09:00 06/18/21 08:21 Magnesium Oxide (Magnesium Oxide) 200 mg DAILY PO 06/18/21 09:00 06/18/21 08:22 Justifications for Admission Other Justification ANNIE DURAN MD Jun 18, 2021 09:50
[2021-06-18 11:00] VITALS: BP 122/63
[2021-06-18] MEDS: ACETAMINOPHEN 500 MG TABLET PO SCH ×2 (11:35→17:14)
[2021-06-18 15:00] VITALS: BP 133/62
[2021-06-18] MEDS ORDERED: BISACODYL 10 MG SUPP.RECT. PR PRN (16:00)
[2021-06-18] MEDS: metFORMIN 500 MG TABLET PO SCH (17:14)
[2021-06-18 19:00] VITALS: BP 114/50
[2021-06-18] MEDS: ATORVASTATIN CALCIUM 10 MG TABLET. PO SCH (21:00)
[2021-06-18 23:00] VITALS: BP 113/51
[2021-06-19 03:00] VITALS: BP 121/52
[2021-06-19] MEDS: LEVOTHYROXINE 150 MCG TABLET PO SCH (04:56)
[2021-06-19] MEDS: PANTOPRAZOLE 40 MG TABLET.DR. PO SCH (04:56)
[2021-06-19] MEDS: ACETAMINOPHEN 500 MG TABLET PO SCH ×3 (04:57→12:00)
[2021-06-19] MEDS: ENOXAPARIN 40 MG/0.4 ML SYRINGE. SQ SCH (05:00)
[2021-06-19 05:54] LABS: HEMOGLOBIN 11.8 g/dL (12.0-15.5)
[2021-06-19 07:30] VITALS: BP 117/54
[2021-06-19] MEDS: METOPROLOL SUCC 24HR ER 25 MG TAB.ER.24H. PO SCH (08:43)
[2021-06-19] MEDS: MULTIVITAMIN with MINERAL TABLET. PO SCH (08:43)
[2021-06-19] MEDS: VITAMIN B COMPLEX TABLET. PO SCH (08:43)
[2021-06-19] MEDS: VITAMIN E 200 UNIT CAPSULE. PO SCH (08:43)
[2021-06-19] MEDS: SENNOSIDES/DOCUSATE 8.6/50MG TABLET. PO SCH (08:43)
[2021-06-19] MEDS: CHOLECALCIFEROL (VITAMIN D3) 5,000 UNIT CAPSULE PO SCH (08:43)
[2021-06-19] MEDS: MAGNESIUM OXIDE 400 MG TABLET PO SCH (08:44)
[2021-06-19] MEDS: metFORMIN 500 MG TABLET PO SCH (08:44)
[2021-06-19] MEDS: LOSARTAN POTASSIUM 50 MG TABLET. PO SCH (08:44)
[2021-06-19] MEDS: CALCIUM CARBONATE 500 MG TABLET PO SCH (08:46)
--- NOTE | 2021-06-19 09:11 | PDOC ---
PROGRESS NOTES Date of Service DATE: 06/19/21 TIME: 09:11 Subjective Subjective POD #2 s/p L TKA Pt was seen and examined this AM. Taking shower with therapy services. Pain controlled post-op. Tolerating PO intake. Denies CP, SOB, abd pain/discomfort. Has not yet had a BM post-op. Passing minimal flatus. Mobilizing well with therapy. No acute events overnight. Objective Vital Signs Vital Signs Date Time Temp Pulse Resp B/P (MAP) Pulse Ox O2 Delivery O2 Flow Rate FiO2 06/19/21 08:44 69 117/54 06/19/21 07:30 98.9 18 95 Room Air 98.9 06/17/21 10:55 2.0 Physical Exam Focused orthopedic examination LLE: Compression stockings in place. Dressings clean, dry and intact. Compartments soft and compressible. Calf non-tender. Cap refill brisk. LLE warm and well perfused. EHL/FHL intact. Plantarflexion/dorsiflexion intact. Wiggles all toes on command. Sensation to light touch throughout the superficial peroneal, deep peroneal, sural, tibial and saphenous nerve distributions intact. No evidence of thrombus. BLE edema to ankles. Labs Laboratory Tests Test 06/18/21 07:20 06/19/21 04:55 Sodium Level 139 mmol/L (136-145) Potassium Level 4.0 mmol/L (3.5-5.1) Chloride Level 103 mmol/L (98-107) Carbon Dioxide Level 29 mmol/L (21-32) Anion Gap 7 (6-14) Blood Urea Nitrogen 11 mg/dL (7-20) Creatinine 0.6 mg/dL (0.6-1.0) Estimated GFR (Cockcroft-Gault) 97.5 BUN/Creatinine Ratio 18 (6-20) Glucose Level 133 mg/dL (70-99) Calcium Level 9.2 mg/dL (8.5-10.1) Total Bilirubin 0.4 mg/dL (0.2-1.0) Aspartate Amino Transf (AST/SGOT) 11 U/L (15-37) Alanine Aminotransferase (ALT/SGPT) 21 U/L (14-59) Alkaline Phosphatase 52 U/L (46-116) Total Protein 5.7 g/dL (6.4-8.2) Albumin 2.6 g/dL (3.4-5.0) Albumin/Globulin Ratio 0.8 (1.0-1.7) Hemoglobin 11.8 g/dL (12.0-15.5) Hematocrit 35.0 % (36.0-47.0) Mean Corpuscular Hemoglobin Concent 34 g/dL (31-37) Laboratory Tests Test 06/19/21 04:55 Hemoglobin 11.8 g/dL (12.0-15.5) Hematocrit 35.0 % (36.0-47.0) Mean Corpuscular Hemoglobin Concent 34 g/dL (31-37) Assessment Assessment 75 y/o F primary osteoarthritis L knee s/p L TKA 06/17 - Jennifer * WBAT LLE * PT/OT for mobilization, gait training and fall prevention. AROM/PROM L knee. * Maintain surgical dressings. Re-enforce as needed. * DVT ppx (Lovenox); ASA 325mg BID on discharge * Post-op abx complete * ICE operative extremity prn * Compressive dressing/DINORAH hose for edema/post-op swelling * 11.8 post-op 06/19; VSS * Encourage use of IS while awake * CM for discharge planning; referrals for ([facility]) sent on 06/18. * Follow up with ortho clinic in 2 weeks following discharge from the hospital. Call to schedule appointment prior to discharge if not already scheduled prior to surgery. [phone]. Justicifation of Admission Dx: Justifications for Admission: Justification of Admission Dx: N/A BRADEN MONAHAN Jun 19, 2021 09:11
[2021-06-19] MEDS ORDERED: ASPI325T11 PO (10:18)
[2021-06-19 11:04] VITALS: BP 109/57
--- NOTE | 2021-06-19 14:37 | PDOC ---
[employer] PROGRESS NOTE Date of Service DOS: DATE: 06/19/21 TIME: 14:35 Chief Complaint Chief Complaint Left knee severe osteoarthritis- s/p left total knee arthroplasty 06/17/2021. Rehab modalities. ASA thromboprophylaxis per ortho HTN - losartan and toprol Afib - s/p cardioversion. sinus currently. on metoprolol xl Hypothyroidism - on 150mcg levothyroxine GERD - on PPI Prediabetes - A1c 5.8 outpatient, should consider metformin therapy 500mg with meals FEN - regular diet PPX - ASA, scds FULL CODE Dispo - inpatient post-op care History of Present Illness History of Present Illness Ms Duff is a 75yo female with PMHx HTN, afib, hypothyroidism, GERD who presents to [place] for left total knee arthroplasty for definitive treatment for osteoarthritis. Preoperative labs reviewed, A1c is 5.8, 25 hydroxy vitamin D 75.9, Hb 14.3, INR 0.9. Atrial fibrillation she status post successful cardioversion is maintained on Toprol-XL. She notes her levothyroxine dosing has been stable. Notes no urinary problems no shortness of breath or chest pain. She currently lives alone but her sister is coming in town on 06/20/2019 to take care of her postoperatively. She currently has left knee pain and stiffness no numbness or tingling in her foot. 06/18: Glucose 133, albumin 2.6. Hemogram pending. Sitting up in chair. Worked with occupational therapy. Has some pain and stiffness in her left knee no shortness of breath, CP 06/19: Still no BM bowel movement. She is refusing to her bowel regimen. Able to get up with therapy. Plan is home with home health. Hemoglobin 11.8. Vitals/I&O Vitals/I&O: Vital Signs Date Time Temp Pulse Resp B/P (MAP) Pulse Ox O2 Delivery O2 Flow Rate FiO2 06/19/21 11:04 98.1 68 18 109/57 (74) 94 Room Air 98.1 I & O 06/18/21 06/18/21 06/19/21 15:00 23:00 07:00 Intake Total 200 ml Balance 200 ml Physical Exam General: Alert, Oriented X3, Cooperative, mild distress Heart: Regular rate, Normal S1, Normal S2, No murmurs Abdomen: Normal bowel sounds, Soft, No tenderness, No hepatosplenomegaly, No masses Extremities: No clubbing, No cyanosis, No edema, Normal pulses, No tendern ess/swelling Skin: No rashes, No breakdown, Other (Left knee dressing in place) Labs Labs: Laboratory Tests Test 06/19/21 04:55 Hemoglobin 11.8 g/dL (12.0-15.5) Hematocrit 35.0 % (36.0-47.0) Mean Corpuscular Hemoglobin Concent 34 g/dL (31-37) Comment Review of Relevant I have reviewed the following items teresa (where applicable) has been applied. Medications: Current Medications Medications (Trade) Dose Ordered Sig/Xochitl Route PRN Reason Start Time Stop Time Status Last Admin Dose Admin Metformin HCl (Glucophage) 500 mg BIDWMEALS PO 06/18/21 17:00 06/19/21 08:44 Justifications for Admission Other Justification ANNIE DURAN MD Jun 19, 2021 14:37
[2021-06-19] MEDS ORDERED: TRAM50TA PO (14:44)
[2021-06-19] MEDS ORDERED: METF500T16 PO (14:44)
--- NOTE | 2021-06-19 14:46 | SNU/HH DC ---
DISCHARGE WITH HOME HEALTH DISCHARGE INFORMATION: Discharge Date: Jun 19, 2021 Final Diagnosis: Left knee osteoarthritis Condition on Discharge: Stable CODE STATUS: Code Status: Full HOME HEALTH: Face to Face: I certify this patient is under my care and that I, or a nurse practitioner or physician's pastrycook's assistant working with me, had a face to face encounter that meets the physician face to face encounter requirements with this patient on 06/19/2021. Medical Complications: S/P Joint Replacement Detention For: Assess & Educate Safety, Assess/Skilled Observatio, Medication Management, Pain Management RN For Eval/Treatment: Yes Physical Therapy For: Evalulation/Treatment Occupational Therapy For: Evaluation/Treatment Pt Meets Homebound Status: Unsteady balance w/ amb,, Fatigue w/ amb. POST DISCHARGE ORDERS: Activity Instructions for Disc: Activity as tolerated, Walk in house Weight Bearing Status after Di: No restrictions, Full weight bearing, As tolerated Bathing Instructions: Shower-keep dressing dry, No Tub Bath until see DIET AFTER DISCHARGE: ADA Wound/Incision Care: Ice to area for comfort, Keep wound/cast CDI, Keep wound elevated, Do not change dressing Other wound/incision instructi: if dressing becomes saturated call Dr. Rodriguez's office at [phone] FOLLOW-UP: Follow up with: Orthopedic clinic [phone] Follow Up With: f/u Dr. Rodriguez on July 03 as scheduled call if need to reschedule Warfarin Follow UP: enteric coated aspirin 325 mg 2 times a day for 30 days TREATMENT/EQUIPMENT ORDERS: Adaptive Equipment Issued: None CERTIFICATION STATEMENT: Certification Statement: Certification Statement: Based on the above finding, I certify that this patient is confined to the home and needs intermittent snf care, physical therapy and/or speech therapy, or continues to need occupational therapy.~ This patient is under my care, and I have initiated the establishment of the plan of care.~ This patient will be followed by myself or a community physician who will periodically review the plan of care. Home Meds Active Scripts Tramadol Hcl (TRAMADOL HCL) 50 Mg Tablet, 50 MG PO Q6HRS PRN for PAIN for 4 Days, #16 TAB Prov:ANNIE DURAN MD 06/19/21 Metformin Hcl (METFORMIN HCL) 500 Mg Tablet, 500 MG PO BIDWMEALS for Prediabetes for 30 Days, #60 TAB 2 Refills Prov:ANNIE DURAN MD 06/19/21 Reported Medications Aspirin (ASPIRIN EC) 325 Mg Tablet.dr, 1 TAB PO BID for blood thinner for 30 Days, #60 TAB 0 Refills 06/19/21 Calcium/Magnesium/Zinc (JLQIZTG-JARFTPUXZ-EIMG TAB) 1 Each Tablet, 1 EACH PO DAILY for supplement, TAB 06/12/21 [prevagen] No Conflict Check, 1 TAB PO DAILY for suplement for memory 06/12/21 Valsartan (DIOVAN) 80 Mg Tablet, 80 MG PO DAILY for bp control, TAB 06/12/21 Cholecalciferol (Vitamin D3) (Vitamin D3) 125 Mcg Tablet, 125 MCG PO DAILY for supplement, TAB 06/12/21 Aspirin (ASPIRIN) 81 Mg Tab.chew, 81 MG PO DAILY for blood thinner, TAB.CHEW 06/12/21 Vitamin B Complex (B COMPLEX) 1 Each Tablet, 1 EACH PO DAILY for suppklement, TAB 06/12/21 [Mag-Oxide] No Conflict Check, 250 MG PO DAILY 12/15/17 Ubidecarenone (COQ-10) 100 Mg Capsule, 100 MG PO DAILY for supplement, CAP 12/15/17 Vitamin E Mixed (VITAMIN E) 400 Unit Capsule, 400 UNIT PO DAILY, CAP 12/15/17 Lovastatin (LOVASTATIN) 40 Mg Tablet, 1 TAB PO QHS, #30 TAB 5 Refills 12/15/17 Multivitamin (MULTIVITAMINS) 1 Each Tablet, 1 TAB PO DAILY, #90 TAB 3 Refills 12/15/17 Hydrochlorothiazide (HYDROCHLOROTHIAZIDE TABLET ) 25 Mg Tablet, 1 TAB PO DAILY, #30 TAB 5 Refills 12/15/17 Levothyroxine Sodium (LEVOTHYROXINE SODIUM) 150 Mcg Tablet, 1 TAB PO DAILY, #30 TAB 5 Refills 12/15/17 Metoprolol Succinate (METOPROLOL SUCCINATE ( XL )) 25 Mg Tab.er.24h, 1 TAB PO DAILY, #30 TAB 5 Refills 12/15/17 Omeprazole (OMEPRAZOLE) 20 Mg Capsule.dr, 20 MG PO DAILY, CAP 03/09/14 Discontinued Reported Medications Cholecalciferol (Vitamin D3) (VITAMIN D) 2,000 Unit Capsule, 1 CAP PO DAILY, #30 CAP 3 Refills 12/15/17 Losartan Potassium (LOSARTAN POTASSIUM) 50 Mg Tablet, 50 MG PO DAILY, TAB 12/15/17 ANNIE DURAN MD Jun 19, 2021 14:46
--- NOTE | 2021-06-19 14:48 | PDOC3 ---
Discharge Summary Visit Information Date of Admission: Jun 17, 2021 Date of Discharge: Jun 19, 2021 Admitting Diagnosis: Left knee osteoarthritis Final Diagnosis Left knee osteoarthritis Brief Hospital Course Allergies Allergies Coded Allergies Type Severity Reaction Last Updated Verified Sulfa (Sulfonamide Antibiotics) Allergy Intermediate Hives.Itching (Dime size red spots from waist down) 06/17/21 Yes adhesive tape Allergy Mild bandaid (red around the taped skin) 06/17/21 Yes Vital Signs Vital Signs Date Time Temp Pulse Resp B/P (MAP) Pulse Ox O2 Delivery O2 Flow Rate FiO2 06/19/21 11:04 98.1 68 18 109/57 (74) 94 Room Air 98.1 Lab Results Laboratory Tests Test 06/18/21 07:20 06/19/21 04:55 Sodium Level 139 mmol/L (136-145) Potassium Level 4.0 mmol/L (3.5-5.1) Chloride Level 103 mmol/L (98-107) Carbon Dioxide Level 29 mmol/L (21-32) Anion Gap 7 (6-14) Blood Urea Nitrogen 11 mg/dL (7-20) Creatinine 0.6 mg/dL (0.6-1.0) Estimated GFR (Cockcroft-Gault) 97.5 BUN/Creatinine Ratio 18 (6-20) Glucose Level 133 mg/dL (70-99) Calcium Level 9.2 mg/dL (8.5-10.1) Total Bilirubin 0.4 mg/dL (0.2-1.0) Aspartate Amino Transf (AST/SGOT) 11 U/L (15-37) Alanine Aminotransferase (ALT/SGPT) 21 U/L (14-59) Alkaline Phosphatase 52 U/L (46-116) Total Protein 5.7 g/dL (6.4-8.2) Albumin 2.6 g/dL (3.4-5.0) Albumin/Globulin Ratio 0.8 (1.0-1.7) Hemoglobin 11.8 g/dL (12.0-15.5) Hematocrit 35.0 % (36.0-47.0) Mean Corpuscular Hemoglobin Concent 34 g/dL (31-37) Laboratory Tests Test 06/19/21 04:55 Hemoglobin 11.8 g/dL (12.0-15.5) Hematocrit 35.0 % (36.0-47.0) Mean Corpuscular Hemoglobin Concent 34 g/dL (31-37) Brief Hospital Course Ms Duff is a 75yo female with PMHx HTN, afib, hypothyroidism, GERD who presents to [place] for left total knee arthroplasty for definitive treatment for osteoarthritis. Preoperative labs reviewed, A1c is 5.8, 25 hydroxy vitamin D 75.9, Hb 14.3, INR 0.9. Atrial fibrillation she status post successful cardioversion is maintained on Toprol-XL. She notes her levothyroxine dosing has been stable. Notes no urinary problems no shortness of breath or chest pain. She currently lives alone but her sister is coming in town on 06/20/2019 to take care of her postoperatively. She currently has left knee pain and stiffness no numbness or tingling in her foot. 06/18: Glucose 133, albumin 2.6. Hemogram pending. Sitting up in chair. Worked with occupational therapy. Has some pain and stiffness in her left knee no shortness of breath, CP 06/19: Still no BM bowel movement. She is refusing to her bowel regimen. Able to get up with therapy. Plan is home with home health. Hemoglobin 11.8. Problem list: Left knee severe osteoarthritis- s/p left total knee arthroplasty 06/17/2021. Rehab modalities. ASA thromboprophylaxis per ortho HTN - losartan and toprol Afib - s/p cardioversion. sinus currently. on metoprolol xl Hypothyroidism - on 150mcg levothyroxine GERD - on PPI Prediabetes - A1c 5.8 outpatient, should consider metformin therapy 500mg with meals Greater than 30 minutes spent on discharge home with home health Discharge Information Condition at Discharge: Improved Follow Up: Weeks (2) Disposition/Orders: D/C to Home w/ HH Scheduled Aspirin (Aspirin) 81 Mg Tab.chew, 81 MG PO DAILY for blood thinner, (Reported) Entered as Reported by: RICARDO FUNEZ on 06/12/21 7221 Last Taken: Unknown Dose on 06/07/21 Last Action: Last Taken Edited on 06/17/21 0625 by JUANA LAN Aspirin (Aspirin Ec) 325 Mg Tablet.dr, 1 TAB PO BID for blood thinner for 30 Days, #60 Ref 0 (Reported) Entered as Reported by: ILDA ROJAS on 06/19/21 1018 Last Action: New Order on 06/19/21 1018 by ILDA ROJAS Calcium/Magnesium/Zinc (Rlgfzmv-Qilvylgvw-Vgzm Tab) 1 Each Tablet, 1 EACH PO DAILY for supplement, (Reported) Entered as Reported by: RICARDO FUNEZ on 06/12/21 1544 Last Taken: Unknown Dose on 06/16/21 Last Action: Converted on 06/17/21 1329 by ANNIE DURAN MD Cholecalciferol (Vitamin D3) (Vitamin D3) 125 Mcg Tablet, 125 MCG PO DAILY for supplement, (Reported) Entered as Reported by: RICARDO FUNEZ on 06/12/21 1544 Last Taken: Unknown Dose on 06/16/21 Last Action: Converted on 06/17/21 132 by ANNIE DURAN MD Hydrochlorothiazide (Hydrochlorothiazide Tablet ) 25 Mg Tablet, 1 TAB PO DAILY, #30 Ref 5 (Reported) Entered as Reported by: ENMANUEL JOHNSON on 12/15/17 1523 Last Taken: Unknown Dose on 06/16/21 Last Action: Last Taken Edited on 06/17/21 0625 by JUANA LAN Levothyroxine Sodium (Levothyroxine Sodium) 150 Mcg Tablet, 1 TAB PO DAILY, #30 Ref 5 (Reported) Entered as Reported by: ENMANUEL JOHNSON on 12/15/17 1522 Last Taken: Unknown Dose on 06/17/21 0430 Last Action: Continued on 06/17/21 1329 by ANNIE DURAN MD Lovastatin (Lovastatin) 40 Mg Tablet, 1 TAB PO QHS, #30 Ref 5 (Reported) Entered as Reported by: ENMANUEL JOHNSON on 12/15/17 1525 Last Taken: Unknown Dose on 06/16/21 Last Action: Converted on 06/17/21 1329 by ANNIE DURAN MD Metformin Hcl (Metformin Hcl) 500 Mg Tablet, 500 MG PO BIDWMEALS for Prediabetes for 30 Days, #60 Ref 2 Prescribed by: ANNIE DURAN MD on 06/19/21 1444 Metoprolol Succinate (Metoprolol Succinate ( Xl )) 25 Mg Tab.er.24h, 1 TAB PO DAILY, #30 Ref 5 (Reported) Entered as Reported by: ENMANUEL JOHNSON on 12/15/17 1522 Last Taken: Unknown Dose on 06/17/21 0430 Last Action: Continued on 06/17/219 by ANNIE DURAN MD Multivitamin (Multivitamins) 1 Each Tablet, 1 TAB PO DAILY, #90 Ref 3 (Reported) Entered as Reported by: ENMANUEL JOHNSON on 12/15/17 1524 Last Taken: Unknown Dose on 06/07/21 Last Action: Converted on 06/17/211328 by ANNIE DURAN MD Omeprazole (Omeprazole) 20 Mg Capsule.dr, 20 MG PO DAILY, (Reported) Entered as Reported by: DIANE FLYNN on 03/09/14 0752 Last Taken: Unknown Dose on 06/17/21 0430 Last Action: Converted on 06/17/211328 by ANNIE DURAN MD Ubidecarenone (Coq-10) 100 Mg Capsule, 100 MG PO DAILY for supplement, (Reported) Entered as Reported by: ENMANUEL JOHNSON on 12/15/17 1527 Last Taken: Unknown Dose on 06/16/21 Last Action: Converted on 06/17/211328 by ANNIE DURAN MD Valsartan (Diovan) 80 Mg Tablet, 80 MG PO DAILY for bp control, (Reported) Entered as Reported by: RICARDO FUNEZ on 06/12/21 1544 Last Taken: Unknown Dose on 06/17/210 Last Action: Converted on 06/17/211328 by ANNIE DURAN MD Vitamin B Complex (B Complex) 1 Each Tablet, 1 EACH PO DAILY for suppklement, (Reported) Entered as Reported by: RICARDO FUNEZ on 06/12/21 1544 Last Taken: Unknown Dose on 06/16/21 Last Action: Continued on 06/17/211328 by ANNIE DURAN MD Vitamin E Mixed (Vitamin E) 400 Unit Capsule, 400 UNIT PO DAILY, (Reported) Entered as Reported by: ENMANUEL JOHNSON on 12/15/17 1526 Last Taken: Unknown Dose on 06/07/21 Last Action: Converted on 06/17/211328 by ANNIE DURAN MD [Mag-Oxide] , 250 MG PO DAILY, (Reported) Entered as Reported by: ENMANUEL JOHNSON on 12/15/17 1544 Last Taken: Unknown Dose on 06/16/21 Last Action: Converted on 06/17/21 1329 by ANNIE DURAN MD [prevagen] , 1 TAB PO DAILY for suplement for memory, (Reported) Entered as Reported by: RICARDO FUNEZ on 06/12/21 1544 Last Taken: Unknown Dose on 06/16/21 Last Action: Converted on 06/17/21 1 329 by ANNIE DURAN MD Scheduled PRN Tramadol Hcl (Tramadol Hcl) 50 Mg Tablet, 50 MG PO Q6HRS PRN for PAIN for 4 Days, #16 Prescribed by: ANNIE DURAN MD on 06/19/21 1445 Discontinued Medications Cholecalciferol (Vitamin D3) (Vitamin D) 2,000 Unit Capsule, 1 CAP PO DAILY, #30 Ref 3 (Reported) Entered as Reported by: ENMANUEL JOHNSON on 12/15/17 1528 Losartan Potassium (Losartan Potassium) 50 Mg Tablet, 50 MG PO DAILY, (Reported) Entered as Reported by: ENMANUEL JOHNSON on 12/15/17 1524 Justicifation of Admission Dx: Justifications for Admission: Justification of Admission Dx: N/A ANNIE DURAN MD Jun 19, 2021 14:48
[2021-06-19 15:50] VITALS: BP 128/64
--- NOTE | 2021-06-19 17:00 | NUR ---
REVIEWED DISCHARGE INSTRUCTIONS REGARDING FOLLOW UP, MEDICATIONS HOME HEALTH AND RESTRICTIONS TO ACTIVITIES OF DAILY LIVING. SISTER AT BEDSIDE. ALL QUESTIONS AT BEDSIDE. HAS WALKER. DISMISSED TO HOME.
--- NOTE | 2021-06-19 18:31 | PATHOLOGY ---
[facility] Accession Number: [id number] . 01 Material submitted: . knee - LEFT KNEE BONE/TISSUE. Modifiers: left . 01 Clinical history: . L KNEE PAIN L TOTAL KNEE . 02 Diagnosis: Segments of bone and articular cartilage and focal attached soft tissue, left total knee replacement: - Advanced degenerative arthritis. (JPM/db; 06/19/2021) LBQ 06/19/2021 1800 Local . 02 Electronically signed: . Reggie Hernandez MD, Pathologist NPI- [id number] . 01 Gross description: . The specimen is received in formalin, labeled "Alisha Duff, left knee bone/tissue-gross only" and consists of multiple hard irregular bone fragments aggregating 11.1 x 9.7 x 1.6 cm with minimal attached soft tissue and without meniscus. The articular surfaces are flores-pink, smooth and focally granular and displays 3 prominent areas of eburnation (ranging from 2.0 x 1.9 cm to 3.2 x 0.9 cm) as well as 4 areas of erosion (brown 2.6 x 1.5 cm to 2.5 x 1.7 cm). Osteophytic growths are present. No areas of articular surface softening or partial detachment are identified. [employer] sections are submitted in 2 cassettes following decalcification.([facility] [employer]; 06/17/2021) DKA/DKA 06/17/2021 1704 Local . 02 Pathologist provided ICD-10: M17.12 . 02 CPT . 253306, [id number] Specimen Comment: A courtesy copy of this report has been sent to [phone], [phone] Specimen Comment: [id number] Specimen Comment: Report sent to / DR CALLAHAN Performed at: 01 [facility] [address], [place], [place] [id number] MD Leo Rod MD Phone: [phone] Performed at: 02 [facility] [address] [place], [place] [id number] MD Reggie Hernandez MD Phone: [phone]
== END 2021-06-19 17:15 | disposition home health service (06) | DRG 470 ==
LOC: SURG 06:00 → 4 NORTH 09:09
PROVIDERS: ADMIT Orthopaedic Surgery; ATTEND Orthopaedic Surgery
PROC: 0SRD0J9 Replacement of Left Knee Joint with Synthetic Substitute, Cemented, Open Approach (ICD-10-PCS; principal; 2021-06-17 07:30)
DX: M17.0 Bilateral primary osteoarthritis of knee (principal); E03.9 Hypothyroidism, unspecified; I10 Essential (primary) hypertension; I48.91 Unspecified atrial fibrillation; K21.9 Gastro-esophageal reflux disease without esophagitis; R73.03 Prediabetes; Z82.49 Family history of ischemic heart disease and other diseases of the circulatory system; Z90.710 Acquired absence of both cervix and uterus; Z88.2 Allergy status to sulfonamides; Z20.822 Contact with and (suspected) exposure to COVID-19
CPT/HCPCS: 36415; 73560; 80053; 85014; 85018; 86850; 86900; 86901; 88305; 88311; A4213; A4930; A6253; A6258; A6450; A6550; C1713; C1776; J0171; J1100; J1170; J1650; J1885; J2270; J2405; J2704; J2795; J3010; J3301; J3490; J7030; 97110-GP; 97116-GP; 97530-GP; 97535-GO; G0378